=== PATIENT | male | born 1985 | race Caucasian/White ===

== ENCOUNTER 2016-07-21 08:56 | Emergency (ER) | payer BC, OTHER ==
[2016-07-21] MEDS ORDERED: NS 0.9% 1000 ML* 1,000 ML IV ONE (09:49)
[2016-07-21] MEDS ORDERED: Ketorolac INJ* 30 MG/ML 1 ML VIAL IV ONE (09:49)
[2016-07-21 10:13] LABS: Hematocrit 43 % (42-52); Hemoglobin 14.4 g/dl (14.0-18.0); Mean Corpuscular HGB Conc 34 g/dl (31-36); Mean Corpuscular Hemoglobin 29 pg (27-31); Mean Corpuscular Volume 88 fL (80-94); Mean Platelet Volume 8 um3 (7.4-10.4); Red Blood Count 4.92 10^6/ul (4.0-5.4); Red Cell Distribution Width 13 % (10.5-15); White Blood Count 9.6 10^3/ul (3.5-10.8)
--- NOTE | 2016-07-21 10:13 | ED ---
Influenza-Like Illness - HPI Summary HPI Summary: Patient presents with 4 months of intermittent flu-like symptoms that he has sought evaluation for [facility]. Each time he was treated with different medications ranging from albuterol inhalers, cough medication and antibiotics. None of the treatments gave permanent relief. He has not seen his PCP for any concerns. Today he has a fever, chills, sore throat, cough and chest congestion. He denies N/V/D, SOB, CP or headaches or neck stiffness. - History of Current Complaint Chief Complaint: EDFluSymptoms Time Seen by Provider: 07/21/16 09:35 Hx Obtained From: Patient, Family/Inventory Transcriber Onset/Duration: Gradual Onset, Lasting Weeks, Still Present Severity: Moderate Associated Signs & Symptoms: Fever - 100.5, Cough, Sore Throat, Nasal Congestion Related Hx: Possible Flu/Infectious Exposure - Allergy/Home Medications Allergies/Adverse Reactions: Allergies Allergy/AdvReac Type Severity Reaction Status Date / Time No Known Allergies Allergy Verified 05/17/12 07:35 PMH/Surg Hx/FS Hx/Imm Hx Endocrine/Hematology History: Denies: Hx Anticoagulant Therapy, Hx Diabetes, Hx Thyroid Disease Cardiovascular History: Denies: Hx Hypertension, Hx Pacemaker/ICD Respiratory History: Denies: Hx Asthma, Hx Chronic Obstructive Pulmonary Disease (COPD) History: Denies: Hx Renal Disease Musculoskeletal History: Reports: Other Musculoskeletal History - partial digit amputation right hand Neurological History: Denies: Hx Dementia, Hx Seizures Psychiatric History: Denies: Hx Substance Abuse - Surgical History Surgery Procedure, Year, and Place: 4x shoulder surgeries. 2x knee surgies ( both knees) Infectious Disease History: No Infectious Disease History: Denies: Hx Hepatitis, Hx Human Immunodeficiency Virus (HIV), Traveled Outside the [place] in Last 30 Days - Family History Known Family History: Positive: None - Social History Occupation: Employed Part-time Lives: With Family Alcohol Use: Occasionally Substance Use Type: Reports: None Hx Tobacco Use: No Smoking Status (MU): Never Smoked Tobacco Review of Systems Positive: Fever, Chills, Fatigue Positive: Sore Throat, Ear Ache, Nasal Discharge Negative: Chest Pain Negative: Shortness Of Breath Negative: Abdominal Pain Positive: Myalgia Negative: Headache, Weakness All Other Systems Reviewed And Are Negative: Yes Physical Exam Triage Information Reviewed: Yes Vital Signs On Initial Exam: Initial Vitals Temp Pulse Resp BP Pulse Ox 99.3 F 79 18 123/58 99 07/21/16 08:57 07/21/16 08:57 07/21/16 08:57 07/21/16 08:57 07/21/16 08:57 Vital Signs Reviewed: Yes Appearance: Positive: Well-Appearing, No Pain Distress, Well-Nourished Skin: Positive: Warm, Skin Color Reflects Adequate Perfusion, Dry, Soft Head/Face: Positive: Normal Head/Face Inspection Eyes: Positive: EOMI, MEGHAN, Conjunctiva Clear ENT: Positive: Hearing grossly normal, Nasal congestion, TMs normal, Tonsillar swelling, Tonsillar exudate. Negative: Trismus, Muffled/hoarse voice Neck: Positive: Supple, Tenderness @, Enlarged Nodes @ - bilateral cervical chain Respiratory/Lung Sounds: Positive: Clear to Auscultation, Breath Sounds Present. Negative: Rales, Rhonchi, Wheezes Cardiovascular: Positive: RRR Abdomen Description: Positive: Nontender, Soft. Negative: CVA Tenderness (R), CVA Tenderness (L) Bowel Sounds: Positive: Present Musculoskeletal: Negative: Edema Left, Edema Right Neurological: Positive: Sensory/Motor Intact, Alert, Oriented to Person Place, Time, NV Bundle Intact Distally, Normal Gait Psychiatric: Positive: Affect/Mood Appropriate AVPU Assessment: Alert Diagnostics - Vital Signs Vital Signs Temp Pulse Resp BP Pulse Ox 07/21/16 09:41 100.5 F 80 18 134/66 97 07/21/16 08:57 99.3 F 79 18 123/58 99 - Laboratory Result Diagrams: 07/21/16 10:05 07/21/16 10:05 Lab Statement: Any lab studies that have been ordered have been reviewed, and results considered in the medical decision making process. - Radiology No standard instances Xray Interpretation: No Acute Changes Radiology Interpretation Completed By: Radiologist Flu Symptom Course/Dx - Diagnoses Differential Diagnosis/HQI/PQRI: Positive: Bronchitis, Influenza, Pneumonia, Upper Respiratory Infection Provider Diagnoses: Pharyngitis Discharge - Discharge Plan Condition: Stable Disposition: HOME Prescriptions: Magic Mouth Was-MIRZA/MAAL/LIDO* 5 ml SWISH SWAL QID PRN #100 ml PRN Reason: Pain predniSONE TAB* [Deltasone TAB*] 40 mg PO DAILY #10 tab Patient Education Materials: Pharyngitis (ED) Referrals: Sagar Rutledge NP [Primary Care Provider] - Additional Instructions: Please use the medication provided as prescribed in combination with ibuprofen and tylenol to manage your fever. Follow-up with your regular provider if symptoms persist for the next 3-5 days. Return to the emergency department if symptoms worsen.
[2016-07-21 10:28] LABS: Albumin 4.2 g/dL (3.2-5.2); BUN/Creatinine Ratio 9.9 (8-20); C Reactive Protein 70.8 mg/L (< 5.00); EGFR African American 100.7 (>60); EGFR Non-African American 78.3 (>60); Globulin 2.7 g/dL (2-4); Potassium 4.2 mmol/L (3.5-5.0); Total Bilirubin 1.3 mg/dL (0.2-1.0); Total Protein 6.9 g/dL (6.4-8.9)
[2016-07-21 10:37] VITALS: BP 100/62
--- NOTE | 2016-07-21 10:46 | RAD ---
Indication: Congestion, cough. 2 views the chest including dual energy PA views demonstrate no mediastinal shift. Heart is of normal size and configuration. Lung tsang demonstrate no pleural fluid or pneumonia or pneumothorax. No changes noted since previous exam of May 22, 2012. IMPRESSION: No active cardiopulmonary disease is noted.
[2016-07-21 10:51] LABS: Mono Internal Control QC Line Present
[2016-07-21] MEDS ORDERED: Dexamethasone IV* 10 MG in NS 0.9% 50 ML* 50 ML IVPB ONE (11:05)
== END 2016-07-21 11:37 | disposition home or self-care (01) ==
LOC: ED 08:56
DX: J02.9 Acute pharyngitis, unspecified (principal); R50.9 Fever, unspecified; R05 Cough; R53.83 Other fatigue
CPT/HCPCS: 36415; 71020; 80053; 85025; 86140; 86308; 87502; 87651; 99282; J1885

== ENCOUNTER 2017-04-27 08:08 | Day surgery (SDC) | payer BC ==
--- NOTE | 2017-04-23 06:53 | HP ---
PREOPERATIVE HISTORY AND PHYSICAL: DATE OF SURGERY/ADMISSION: 04/27/17 ATTENDING SURGEON: Frances Bergeron MD* (dictated by JUDITH Vargas). PROCEDURE: Right index finger removal of foreign body. HISTORY OF PRESENT ILLNESS: This is a 31-year-old male, who complains of a foreign body in his right index finger that has become more bothersome over time. Two years ago, he was twisting a light bulb in a socket and the light bulb broke. Portions of the bulb or the filament entered his index finger. He was initially treated at [facility] with x-ray, which showed the foreign body; however, nothing was done at that time to remove it. He has had persistent symptoms in the area especially when he pinches something. 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 However, he has been able to continue working. He has not had any erythema or swelling though the foreign body has not caused any infection. PAST MEDICAL HISTORY: 1. Obstructive sleep apnea. 2. Allergic rhinitis. 3. Social phobia. PAST SURGICAL HISTORY: 1. Right anterior cruciate ligament repair. 2. Left anterior cruciate ligament repair. 3. Skin lesion resection. 4. Left shoulder labral repair. 5. Left middle and ring finger amputations. CURRENT MEDICATIONS: The patient is prescribed a pill for his allergies; however, he does not know the name of it. ALLERGIES: No known drug allergies. FAMILY MEDICAL HISTORY: Noncontributory. 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 He denies tobacco use, illicit drug use and does not drink alcohol. REVIEW OF SYSTEMS: General: Negative for fevers, chills, or night sweats. No known anesthesia problems. HEENT: Negative for headache, lightheadedness, or syncopal episodes. Integumentary: Negative for abrasions, lesions or open wounds. Cardiothoracic: Negative for hypertension, chest pain, palpitations or edema. Pulmonary: Positive for occasional cough associated to his allergies. Negative for shortness of breath with exertion. GI: Negative for nausea, vomiting, diarrhea, constipation and GERD. : Negative for nocturia, urinary frequency, urgency, history of UTIs and kidney problem. Musculoskeletal: Positive for current complaint. Negative for chronic or intermittent back pain , or history of fractures. Neurological: Negative for paresthesias, numbness, history of seizure, stroke or epilepsy. Endocrine: Negative for diabetes and thyroid issues. Hematologic: Negative for easy bruising, anemia, excessive bleeding or history of DVT. Infectious Disease: Negative for history of MRSA, hepatitis C, HIV. PHYSICAL EXAMINATION GENERAL: Well-developed, well-nourished, 31-year-old male, in no acute distress. VITAL SIGNS: Height 5 feet 10 inches, pulse rate 63, blood pressure 128/70, weight 214 pounds. HEENT: Normocephalic, atraumatic. Pupils are equal, round and reactive to light and accommodation. Extraocular movements are intact. NECK: Supple. No palpable lymph nodes. Throat is clear. PULMONARY: Lungs are clear to auscultation bilaterally. No wheezes, rales, or rhonchi. CARDIOVASCULAR: Regular rate and rhythm. S1, S2. No murmurs, rubs, or gallop. No edema. ABDOMEN: Positive bowel sounds, soft, nontender. MUSCULOSKELETAL: On exam of the right index finger, there is a palpable foreign body in the center of the pad of the finger. It is tender to palpation. There is no swelling or erythema. He has full active flexion and extension of the IP joints. There is no neurovascular deficit. NEUROLOGIC: Alert and oriented x3. Cranial nerves II through XII are intact. Sensation is intact to light touch. IMAGING STUDIES: AP, lateral and oblique of the right index finger done a couple of years ago show a radiopaque foreign body adjacent to the distal phalanx on the volar aspect of the index finger. ASSESSMENT: Right index finger foreign body. PLAN: The patient is scheduled to undergo a right index finger removal of foreign body with Dr. Bergeron on 04/27/17. He will return to the office in 10 to 14 days postop for followup and suture removal. A prescription for Ultracet was e-scribed to the patient's pharmacy for postoperative pain management. JUDITH VARGAS [id number]/[facility] #: [id number] MTDElisa
[2017-04-27] MEDS ORDERED: Lidocaine 1% INJ* 10 MG/ML 30 ML SDV ONE (08:24)
[2017-04-27 10:18] VITALS: BP 123/67
--- NOTE | 2017-04-28 07:47 | OP ---
DATE OF OPERATION: 04/27/17 [facility] DATE OF : 87 SURGEON: Frances Bergeron MD PROCESS CONTROL SUPERVISOR: JUDITH Vargas ANESTHESIA: Local. PRE-OP DIAGNOSIS: Foreign body in the right index finger. POST-OP DIAGNOSIS: Foreign body in the right index finger. OPERATIVE PROCEDURE: Removal of foreign body, right index finger. ESTIMATED BLOOD LOSS: Zero. TOURNIQUET TIME: About 10 minutes. INDICATIONS FOR PROCEDURE: Emerson is a 31-year-old male who screwing in a light bulb a couple of years ago. The light bulb broke and he had a laceration of his index finger. He has on x-ray residual foreign body in his index finger and it is bothersome, he presents for removal. DESCRIPTION OF PROCEDURE: The patient was brought to the operating room, was given a digital block anesthetic with 10 cc of 1% plain lidocaine. The skin of his right hand and forearm was prepped and draped in the usual sterile fashion. The index finger right side was exsanguinated with a tourniquet and then a diagonal incision was made across the center of the pad of his finger. We dissected bluntly through the subcutaneous tissue. There was a foreign body reaction and this was removed and additionally a piece a glass was found, which was also removed. The wound was copiously irrigated with saline. We further dissected to see if there was any other foreign body and none was found. The skin edges were then reapproximated with 4-0 nylon suture. The wound was dressed with Xeroform, 4x4, Webril, and Coban. The patient tolerated the procedure well and was brought to the recovery room in good condition. [id number]/[facility] #: [id number] [facility]
== END 2017-04-27 10:30 | disposition home or self-care (01) ==
LOC: OREAST 08:08
PROVIDERS: ATTEND Orthopaedic Surgery
DX: M79.5 Residual foreign body in soft tissue (principal); G47.33 Obstructive sleep apnea (adult) (pediatric); J30.9 Allergic rhinitis, unspecified; F40.10 Social phobia, unspecified
CPT/HCPCS: 88300

== ENCOUNTER 2017-05-18 18:47 | Emergency (ER) | payer BC ==
[2017-05-18 19:21] VITALS: BP 133/63
[2017-05-18] MEDS ORDERED: Gelfoam Sponge SIZE 100* SPONGE TOPICAL ONE (19:49)
[2017-05-18] MEDS ORDERED: Gelfoam 12-7 ADSORBABL SPONGE* 1 EA SPONGE ONE (19:52)
--- NOTE | 2017-05-18 19:56 | RAD ---
INDICATION: Question J-tube the distal tip of the right index finger COMPARISON: None. TECHNIQUE: 3 views of the right index finger were obtained. FINDINGS: The visualized bones are intact and appropriately aligned. Along the radial palmar aspect of the distal phalanx is a tiny radiopaque focus that could represent a foreign body in the setting of soft tissue injury. IMPRESSION: LIKELY SUBCUTANEOUS FOREIGN BODY WITHOUT RADIOGRAPHICALLY APPARENT FRACTURE OR DISLOCATION.
--- NOTE | 2017-05-18 20:54 | UC ---
Tarsha Massey Gabriel, scribed for Ede Carolnia MD on 05/18/17 at 1930 . Laceration HPI - HPI Summary HPI Summary: This patient is a 31 year old M presenting [place] [facility] [place] by his father with a chief complaint of a right sided finger laceration that occurred tonight. He had surgery to remove glass from his finger 3 weeks ago and had the sutures removed 2 weeks ago. Tonight he smashed his finger in an engine stand and the suture site popped back open. The pt states the wound didnt close completely and kept pulling back open. The patient rates the pain 8/10 in severity. - History Of Current Complaint Chief Complaint: UCUpperExtremity Stated Complaint: FINGER LAC RE-INJURED Hx Obtained From: Patient Laceration Location: Finger Mechanism Of Injury: Blunt Trauma Onset/Duration: Sudden Onset, Still Present Severity: Mild Pain Intensity: 8 Pain Scale Used: 0-10 Numeric - Allergies/Home Medications Allergies/Adverse Reactions: Allergies Allergy/AdvReac Type Severity Reaction Status Date / Time No Known Allergies Allergy Verified 05/18/17 19:21 PMH/Surg Hx/FS Hx/Imm Hx Other History Of: Negative For: Hepatitis C, Anticoagulant Therapy - Surgical History Surgical History: Yes Surgery Procedure, Year, and Place: 4x shoulder surgeries. 2x knee surgeries - Family History Known Family History: Negative: Cardiac Disease, Hypertension, Diabetes, Renal Disease, Respiratory Disease, Seizure Disorder - Social History Occupation: Employed Full-time Lives: With Family Alcohol Use: None Substance Use Type: None Smoking Status (MU): Never Smoked Tobacco Review of Systems Constitutional: Negative - fever Skin: Other - laceration All Other Systems Reviewed And Are Negative: Yes Physical Exam - Summary Physical Exam Summary: General: well-appearing, no pain distress Skin: 1cm laceration at the pad of the right second finger distally with mild active bleeding Head: normal Eyes: EOMI, MEGHAN ENT: normal Neck: supple, nontender Respiratory: CTA, breath sounds present Cardiovascular: RRR Abdomen: soft, nontender Bowel: present Musculoskeletal: normal, strength/ROM intact Neurological: normal, sensory/motor intact, A&O x3 Psychological: affect/mood appropriate Triage Information Reviewed: Yes Vital Signs: Initial Vital Signs Temp 97.3 F 05/18/17 19:15 Pulse 64 05/18/17 19:15 Resp 18 05/18/17 19:15 BP 133/63 05/18/17 19:15 Pulse Ox 98 05/18/17 19:15 Vital Signs Reviewed: Yes Laceration Repair - Laceration Repair 1 Description: Linear Laceration Size After Repair: Length (cm) - 1 Irrigation With Pressure Irrigation Device: Yes Suture Type: Other - gel foam placed Diagnostics - Radiology finger xray Radiology Interpretation Completed By: Radiologist - LIKELY SUBCUTANEOUS FOREIGN BODY WITHOUT RADIOGRAPHICALLY APPARENT FRACTURE OR DISLOCATION.Dr Carolina has reviewed this report. Laceration Course/Dx - Course/Dx Course Of Treatment: BP noted and advised to follow up with PCP. THE LACERATION IS AT THE SURGICAL INCISION FROM 04/27/17. PATIENT REPORTS SUTURES OUT 2 WEEKS AGO AND FEELS THE WOUND WAS COMPLETELY CLOSED BY THE LAST 3-4 DAYS AGO. WITH THE CRUSH INJURY TODAY, THE SURGICAL WOUND SPLIT OPEN. I DISCUSSED WITH DR RIOS WHETHER TO CLOSE THE WOUND OR NOT. THE DECISION IS BASED PRIMARILY UPON THE RISK OF INFECTION. DR MAYFIELD TOLD ME HE WOULD INSURE CLOSE F /U IN THE ORTHOPEDICS OFFICE. DISCUSSED SUTURES WITH THE PATIENT VERSES CLOSURE BY PRIMARY INTENTION. DUE TO THE GREASE AND DIRT, THE PATIENT AND I CHOSE CLOSURE BY PRIMARY INTENTION. THE WOUND WAS IRRIGATED. PLACED GEL FOAM AND DRESSED THE WOUND. KEFLEX STARTED. F/U ORTHOPEDICS. - Differential Dx - Laceration/Wound Provider Diagnoses: LACERATION RT INDEX FINGER. Elevated blood pressure without a previous diagnoses of hypertension Discharge - Sign-Out/Discharge Documenting (check all that apply): Discharge - Discharge Plan Condition: Stable Disposition: HOME Prescriptions: Cephalexin CAP* [Keflex CAP*] 500 mg PO TID #21 cap Patient Education Materials: Finger Laceration (ED), Crush Injury (ED) Referrals: Sagar Rutledge NP [Primary Care Provider] - Frances Bergeron MD [Medical Doctor] - Additional Instructions: FOLLOW UP WITH ORTHOPEDICS. CALL TOMORROW TO ARRANGE FOLLOW UP. GET RECHECKED FOR ANY WORSENING OF YOUR CONDITION OR QUESTIONS OR CONCERNS. YOUR BLOOD PRESSURE WAS ELEVATED TODAY; FOLLOW UP WITH YOUR PRIMARY CARE DOCTOR WITHIN ONE WEEK. - Billing Disposition and Condition Condition: STABLE Disposition: HOME The documentation as recorded by the Tarsha rizo Gabriel accurately reflects the service I personally performed and the decisions made by me, Ede Carolina MD.
== END 2017-05-18 20:05 | disposition home or self-care (01) ==
LOC: UCEAST 18:47
DX: S61.210A Laceration without foreign body of right index finger without damage to nail, initial encounter (principal); W24.0XXA Contact with lifting devices, not elsewhere classified, initial encounter; Y93.89 Activity, other specified; Y92.9 Unspecified place or not applicable; R03.0 Elevated blood-pressure reading, without diagnosis of hypertension
CPT/HCPCS: 73140; 99212; A9270-GY; G0463

== ENCOUNTER 2017-10-07 08:09 | Emergency (ER) | payer BC ==
--- NOTE | 2017-10-07 08:18 | UC ---
HPI Febrile Illness - HPI Summary HPI Summary: 31 y/o male presents to the ED c/o constant fever starting last night at 20:00. Temp at 103 last night, per pt. Associated sx: worsening sore throat, chills, ear pain all starting last night at 20:00. Sx are getting progressively worse, per pt. Denies sick contact. PMHx asthma, strep throat. - History of Current Complaint Time Seen by Provider: 10/07/17 08:15 Hx Obtained From: Patient Onset/Duration: Started Hours Ago Timing: Constant Aggravating Factors: Nothing Alleviating Factors: Nothing Associated Signs and Symptoms: Chills, Other: - sore throat, ear ache - Allergy/Home Medications Allergies/Adverse Reactions: Allergies Allergy/AdvReac Type Severity Reaction Status Date / Time No Known Allergies Allergy Verified 10/07/17 08:19 PMH/Surg Hx/FS Hx/Imm Hx Previously Healthy: Yes Endocrine History: Other - Negative: DM Other Endocrine History: Negative: DM Other History Of: Negative For: Hepatitis C, Anticoagulant Therapy - Surgical History Surgical History: Yes Surgery Procedure, Year, and Place: 4x shoulder surgeries. 2x knee surgeries - Family History Known Family History: Positive: None Negative: Cardiac Disease, Hypertension, Diabetes, Renal Disease, Respiratory Disease, Seizure Disorder - Social History Alcohol Use: None Substance Use Type: None Smoking Status (MU): Never Smoked Tobacco Review of Systems Constitutional: Fever, Chills Skin: Negative Eyes: Negative ENT: Sore Throat, Ear Ache, Nasal Discharge Respiratory: Negative Cardiovascular: Negative Gastrointestinal: Negative Genitourinary: Negative Motor: Negative Neurovascular: Negative Musculoskeletal: Negative Neurological: Negative Psychological: Negative All Other Systems Reviewed And Are Negative: Yes Physical Exam Triage Information Reviewed: Yes Appearance: No Pain Distress, Well-Nourished, Ill-Appearing - mildly Vital Signs Reviewed: Yes Eye Exam: Normal ENT: Positive: TMs normal, Tonsillar exudate - tonsills 2+ bilaterally, erythematous with exudates Neck: Positive: Supple, Nontender Respiratory: Positive: Lungs clear, Normal breath sounds Cardiovascular: Positive: RRR Abdomen Description: Positive: Nontender, Soft Bowel Sounds: Positive: Present Musculoskeletal: Positive: Strength Intact, ROM Intact Neurological: Positive: Alert Psychological: Positive: Age Appropriate Behavior Skin Exam: Normal Course/Dx - Course Course Of Treatment: DISCUSSED VIRAL VERSES BACTERIAL INFECTION AND THE ROLE OF ANTIBIOTICS. THE PATIENT WISHES TO BE ON ANTIBIOTICS AT THIS TIME. - Diagnoses Clinic Provider Diagnoses: TONSILLITIS Discharge - Sign-Out/Discharge Documenting (check all that apply): Patient Departure - Discharge Plan Condition: Stable Disposition: HOME Prescriptions: Amoxicillin/Clavulanate TAB* [Augmentin TAB 875*] 875 mg PO BID #20 tab Patient Education Materials: Tonsillitis (ED) Referrals: Sagar Rutledge NP [Primary Care Provider] - Additional Instructions: FOLLOW UP WITH YOUR DOCTOR IF NOT IMPROVED. GET RECHECKED FOR ANY WORSENING OF YOUR CONDITION OR QUESTIONS OR CONCERNS. - Billing Disposition and Condition Condition: STABLE Disposition: Home
[2017-10-07] MEDS ORDERED: Ibuprofen TAB* 600 MG PO ONE (08:20)
[2017-10-07 08:22] VITALS: BP 131/64
== END 2017-10-07 08:55 | disposition home or self-care (01) ==
LOC: UCEAST 08:09
DX: J03.90 Acute tonsillitis, unspecified (principal)
CPT/HCPCS: 87651; 99212; A9270-GY; G0463

== ENCOUNTER 2018-08-20 15:34 | Emergency (ER) | payer BC ==
--- OUTSIDE RECORDS SUMMARY | 2018-08-20 15:40 | XMS REPORT | Continuity of Care Document ---
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 Roman Parra MD FACP Primary Care Physician Unavailable Payers Date Identification Numbers Payment Provider Subscriber Policy Number: [id number] [employer] Emerson Malave PayID: [id number] [address] [address] [place] [address] Problems Active Problems Provider Date Difficulty breathing Roman Parra MD Onset: 11/23/2017 Hypertrophy of tonsils Roman Parra MD Onset: 11/23/2017 Gastro-esophageal reflux disease with Roman Parra MD Onset: 11/23/2017 esophagitis Inactive Problems Obstructive sleep apnea syndrome Roman Parra MD Onset: 11/23/2017 Inactive: 07/05/2018 Family History Date Family Member(s) Observation Comments Mother 55 Mother White Mother Unknown Mother Gastroesophageal Reflux Disease (GERD) Grandmother quadrouple bypass surgery of heart Maternal GM Maternal Grandfather 83 Maternal Grandfather Colon Cancer Maternal Grandfather Liver Cancer Maternal Grandfather Lung Cancer Maternal Grandfather Cancer Maternal Grandfather due to Cancer () Maternal Grandmother 75 Maternal Grandmother Anxiety Maternal Grandmother Dementia Maternal Grandmother Depression Maternal Grandmother Obesity Onset: (2009) Maternal Grandmother Alzheimer's Disease Maternal Grandmother Gastroesophageal Reflux Disease (GERD) Social History Type Date Description Comments Sex Unknown Marital Status 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 03/10/18. Work Status Currently Working ETOH Use Never used alcohol Tobacco Use Start: Unknown Patient has never smoked Exercise Type/Frequency Does not exercise Guns in Home No Currently Active Patient is currently sexually active Condom Use Never Allergies, Adverse Reactions, Alerts Description No Known Drug Allergies Medications Active Medications SIG Qnty Indications Ordering Date Provider Cyclobenzaprine HCL 1/2-1 by mouth every 10tabs M54.2 Owens A night as needed MD Aida 9 10mg Tablets Omeprazole take 1 capsule by K21Hebert Baca 40mg mouth twice daily MD Tawny [address] before eating for gastroesophageal reflux disease History Medications Celecoxib 1 by mouth every 30caps M54.6 Owens Mirza 07/19/2018 - 200mg day with food for MD Aida 08/02/2018 Capsules 2 weeks and than as needed. M54.2 Meloxicam 1 by mouth 30tabs M54.6 Owens Mirza Parra, 07/05/2018 - 15mg every day 07/19/2018 Tablets M54.2 Amoxicillin/Clavulanate twice daily Unknown 10/07/2017 - Potassium 10/14/2017 875-125mg Tablets Omeprazole Once a day Hebert Escamilla 10/04/2017 - 40mg Capsules DR Tawny MD 03/10/2018 Montelukast Sodium bedtime J32.8 Aminta Covarrubias, 04/22/2017 - 10mg Tablets 03/10/2018 Immunizations CPT Code Status Date Vaccine Lot # [id number] Given 02/22/2010 Tdap-Tetanus, Diphtheria Toxoids/Acellular Pertussis Vaccine [id number]+ [id number] Refused 03/10/2018 Influenza Vaccine Quadrivalent Preser/Antibiotic Free Im Use Vital Signs Date Vital Result Comment 07/05/2018 1:15pm Heart Rate 66 /min BP Systolic 115 mmHg BP Diastolic 75 mmHg 03/10/2018 11:34am Body Temperature 98.4 F O2 % BldC Oximetry 99 % Heart Rate 58 /min BP Systolic 115 mmHg BP Diastolic 75 mmHg BMI (Body Mass Index) 44.4 kg/m2 Weight 220.00 lb Height 59 inches 4'11" 11/23/2017 11:37am Body Temperature 98.6 F O2 % BldC Oximetry 99 % Heart Rate 65 /min BP Systolic 110 mmHg BP Diastolic 70 mmHg BMI (Body Mass Index) 32.8 kg/m2 Weight 224.00 lb Height 69.25 inches 5'9.25" Results Test Date Facility Test Result H/L Range Note Xray 07/05/2018 [facility] Spine, Cervical, 2 Or [address] [place] [address] [phone] Spine, Thoracic, Minimum 4 Views Mild DJD CBC No Diff 01/12/2018 [facility] White Blood 5.4 10^3/uL N 3.5-10.8 [place] [address] Count [phone] Red Blood Count 5.06 10^6/uL N 4.00-5.40 Hemoglobin 15.2 g/dL N 14.0-18.0 Hematocrit 44 % N 42-52 Mean Corpuscular Volume 88 fL N 80-94 Mean Corpuscular Hemoglobin 30 pg N 27-31 Mean Corpuscular HGB Conc 34 g/dL N 31-36 Red Cell Distribution Width 13 % N 10.5-15 Platelet Count 237 10^3/uL N 150-450 Mean Platelet Volume 7.5 fL N 7.4-10.4 Comp Metabolic Panel 01/12/2018 [facility] Sodium 143 mmol/L N 135-145 [place], [place] [id number] [phone] Potassium 4.4 mmol/L N 3.5-5.0 Chloride 107 mmol/L N 101-111 Co2 Carbon Dioxide 29 mmol/L N 22-32 Anion Gap 7 mmol/L N 2-11 Glucose 93 mg/dL N 70-100 Blood Urea Nitrogen 18 mg/dL N 6-24 Creatinine 0.96 mg/dL N 0.67-1.17 BUN/Creatinine Ratio 18.8 N 8-20 Calcium 9.7 mg/dL N 8.6-10.3 Total Protein 7.1 g/dL N 6.4-8.9 Albumin 4.7 g/dL N 3.2-5.2 Globulin 2.4 g/dL N 2-4 Albumin/Globulin Ratio 2.0 N 1-3 Total Bilirubin 0.70 mg/dL N 0.2-1.0 Alkaline Phosphatase 44 U/L N 34-104 Alt 32 U/L N 7-52 Ast 21 U/L N 13-39 Egfr Non- 91.4 >60 Egfr 110.5 >60 1 Lipid Profile 01/12/2018 [facility] Triglycerides 58 mg/dL 2 (Trig/Chol/HDL) [place] [id number] [phone] Cholesterol 164 mg/dL 3 HDL Cholesterol 42.2 mg/dL 4 LDL Cholesterol 110 mg/dL 5 Laboratory test 01/12/2018 [facility] TSH (Thyroid 2.25 mcIU/mL N 0.34-5.60 6 [place] [address] Stim Horm) [phone] Vitamin D Total 25(Oh) 26.1 ng/mL N 20-50 7 Vitamin B12 516 pg/mL N 180-914 8 Urinalysis Profile 01/12/2018 [facility] Urine Color Yellow [place], [place] [id number] [phone] Urine Appearance Clear Urine Specific Hubbard 1.023 N 1.010-1.030 Urine pH 5.0 N 5-9 Urine Urobilinogen Negative Negative Urine Ketones Negative Negative Urine Protein Negative Negative Urine Leukocytes Negative Negative Urine Blood Negative Negative Urine Nitrite Negative Negative Urine Bilirubin Negative Negative Urine Glucose Negative Negative 1 Because ethnic data is not always readily available, this report includes an eGFR for both -Americans and non- Americans. The National Kidney Disease Education Program (NKDEP) does not endorse the use of the MDRD equation for patients that are not between the ages of 18 and 70, are , have extremes of body size, muscle mass, or nutritional status, or are non- or non-. According to the National Kidney Foundation, irrespective of diagnosis, the stage of the disease is based on the level of kidney function: Stage Description GFR(mL/min/1.73 m(2)) 1 Kidney damage with normal or decreased GFR 90 2 Kidney damage with mild decrease in GFR 60-89 3 Moderate decrease in GFR 30-59 4 Severe decrease in GFR 15-29 5 Kidney failure <15 (or dialysis) 2 Desirable: <150 Borderline High: 150-199 High: 200-499 Very High: >500 3 Desirable: <200 Borderline High: 200-239 High: >239 4 Low: <40 Desirable: 40-60 High: >60 5 Desirable: <100 Near Optimal: 100-129 Borderline High: 130-159 High: 160-189 Very High: >189 6 FASTING 7 FASTING 8 Normal Range 180 to 914 Indeterminate Range 145 to 180 Deficient Range <145 Encounters Type Date Location Provider Dx Diagnosis Office Visit 08/02/2018 12:40p Main Office Roman Parra MD M54.2 Cervicalgia M54.6 Pain in thoracic spine Office Visit 07/19/2018 12:40p Main Office Erin Chavez4.6 Pain in thoracic MD spine M54.2 Cervicalgia Office Visit 07/05/2018 12:40p Main Office Erin Chavez4.6 Pain in thoracic MD spine M54.2 Cervicalgia Office Visit 03/10/2018 11:00a Main Office Roman Blue Z00.01 Encounter for MD Aida general adult medical exam w abnormal findings G47.33 Obstructive sleep apnea (adult) (pediatric) Office Visit 11/23/2017 11:20a Main Office Roman Parra MD R05 Cough R06.83 Snoring J35.1 Hypertrophy of tonsils G47.33 Obstructive sleep apnea (adult) (pediatric) K21.0 Gastro-esophageal reflux disease with esophagitis Plan of Treatment 08/02/2018 - Roman Parra MDM54.2 LkyrfrxxbmcD23.6 Pain in thoracic spineAllComments:Advised to continue PT.Myofacial pain and may tale a while to improve.Educated with symptoms that myrequire further evaluation and management.Patient verbalized understanding.
[2018-08-20 15:44] VITALS: BP 122/81
--- NOTE | 2018-08-20 15:53 | UC ---
Lower Extremity/Ankle HPI - HPI Summary HPI Summary: 32-year-old male presents with complaints of right great toe pain after jumping into the pool and jamming his toe earlier today. He was able to walk and bear weight immediately after the injury with pain. Reports "burning and stinging" in the toe. Denies numbness or tingling. - History of Current Complaint Chief Complaint: UCLowerExtremity Stated Complaint: INJURY TO RIGHT BIG TOE Time Seen by Provider: 08/20/18 15:40 Hx Obtained From: Patient Pain Intensity: 4 - Allergies/Home Medications Allergies/Adverse Reactions: Allergies Allergy/AdvReac Type Severity Reaction Status Date / Time No Known Allergies Allergy Verified 03/08/18 14:27 PMH/Surg Hx/FS Hx/Imm Hx Previously Healthy: Yes GI/ History: Gastroesophageal Reflux Other History Of: Negative For: Hepatitis C, Anticoagulant Therapy - Surgical History Surgical History: Yes Surgery Procedure, Year, and Place: 4x shoulder surgeries. 2x knee surgeries. tonsillectomy-January 2018 - Family History Known Family History: Positive: Non-Contributory - Social History Occupation: Employed Full-time Lives: With Family Alcohol Use: None Substance Use Type: None Smoking Status (MU): Never Smoked Tobacco Review of Systems All Other Systems Reviewed And Are Negative: Yes Constitutional: Positive: Negative Skin: Negative: Bruising Respiratory: Positive: Negative Cardiovascular: Positive: Negative Gastrointestinal: Positive: Negative Genitourinary: Positive: Negative Musculoskeletal: Positive: Other: - See HPI Neurological: Positive: Negative Is Patient Immunocompromised?: No Physical Exam - Summary Physical Exam Summary: GENERAL APPEARANCE: Well developed, well nourished, alert and cooperative, and appears to be in no acute distress. CARDIAC: Normal S1 and S2. No S3, S4 or murmurs. Rhythm is regular. There is no peripheral edema, cyanosis or pallor. Extremities are warm and well perfused. Capillary refill is less than 2 seconds. Peripheral pulses intact. LUNGS: Clear to auscultation without rales, rhonchi, wheezing or diminished breath sounds. ABDOMEN: Positive bowel sounds. Soft, nondistended, nontender. No guarding or rebound. No masses or hepatosplenomegally. MUSKULOSKELETAL: Normal muscular development. Limping gait. EXTREMITIES: Tenderness over the distal phalanx of the right great toe with mild edema. No gross deformity or ecchymosis. Circulation and sensation intact. SKIN: Skin normal color, texture and turgor with no lesions or eruptions. Triage Information Reviewed: Yes Vital Signs: Initial Vital Signs Temp 98.4 F 08/20/18 15:39 Pulse 71 08/20/18 15:39 Resp 16 08/20/18 15:39 BP 122/81 08/20/18 15:39 Pulse Ox 99 08/20/18 15:39 Vital Signs Reviewed: Yes Diagnostics - Radiology No standard instances Radiology Interpretation Completed By: ED Physician - Nondisplaced fracture of the metaphysis of the distal phalanx of the right great toe., Radiologist Summary of Radiographic Findings: Order Information: TOE RIGHT GREAT. Accession Number: [id number]. CPT: 60151. Indication: Right great toe injury. 3 views of the right great toe demonstrates fracture through the distal phalanx of the right great toe without significant displacement. IMPRESSION: Fracture through the distal phalanx of the right great toe without significant displacement. Lower Extremity Course/Dx - Course Course Of Treatment: 32-year-old male presents with complaints of right great toe pain after jumping into the pool and jamming his toe earlier today. He was able to walk and bear weight immediately after the injury with pain. Reports "burning and stinging" in the toe. Denies numbness or tingling. Afebrile. VSS. Patient has pain over the distal phalanx of the right great toe with mild edema. No gross deformity or ecchymosis. Circulation and sensation intact. X-ray showed nondisplaced fracture of the distal phalanx of the right great toe. Patient was placed in a post-op shoe and recommended conservative treatment including OTC analgesics and RICE. He is to follow up with orthopedic surgery in 7 days. Anticipatory guidance and warning symptoms were reviewed with the patient. Verbalizes understanding and agrees with POC. - Differential Dx/Diagnosis Differential Diagnosis/HQI/PQRI: Contusion, Dislocation, Fracture (Closed), Sprain Provider Diagnosis: Nondisplaced fracture of distal phalanx of right great toe Discharge - Sign-Out/Discharge Documenting (check all that apply): Patient Departure All imaging exams completed and their final reports reviewed: Yes - Discharge Plan Condition: Stable Disposition: HOME Patient Education Materials: Toe Fracture (ED) Referrals: Roman Parra MD [Primary Care Provider] - Khurram Porter MD [Medical Doctor] - 7 Days Additional Instructions: The x-ray performed in the clinic today showed a fracture of the distal phalanx of the right great toe. Rest the foot as much as possible. You may continue to walk and bear weight as tolerated. Use the post-op shoe that was provided to you in the clinic. You may remove to shower and sleep but should wear at all other times. Apply ice to the affected area for 15-20 minutes at least 4 times a day to help with the pain and swelling. Elevate the foot to help reduce swelling. Take acetaminophen (Tylenol) or ibuprofen (Advil, Motrin) according to directions as needed for pain. Follow up with orthopedic surgery within 7 days for re-evaluation of the injury. Call Wednesday morning for appointment. Seek immediate medical attention if you have severe pain not managed with pain medication, you are unable to walk or bear any weight, develop numbness or tingling in the toe, or have any worsening of symptoms. - Billing Disposition and Condition Condition: STABLE Disposition: Home - Attestation Statements Provider Attestation: I was available for consult. This patient was seen by the NARDA. The patient was not presented to, seen by, or examined by me. -Caterina
== END 2018-08-20 16:24 | disposition home or self-care (01) ==
LOC: UCEAST 15:34
DX: S92.424A Nondisplaced fracture of distal phalanx of right great toe, initial encounter for closed fracture (principal); W16.522A Jumping or diving into swimming pool striking bottom causing other injury, initial encounter; Y93.11 Activity, swimming; Y92.830 Public park as the place of occurrence of the external cause; Y99.8 Other external cause status; K21.9 Gastro-esophageal reflux disease without esophagitis
CPT/HCPCS: 99212; G0463